=== PATIENT | female | born 1985 | race Caucasian/White ===

== ENCOUNTER 2016-03-28 11:57 | Emergency (ER) | payer OTHER ==
[~2016-03-28] VITALS: Ht 160 cm; Wt 75.0 kg
[~2016-03-28 11:57] MED LIST: ACYC400T2 PO; CEPH-443 PO; FAMO-18 PO; GUAI120S26 PO; IBUP-1542 PO; PRED50 PO
[2016-03-28 12:01] VITALS: Ht 160 cm; Wt 75.0 kg
[2016-03-28 14:19] LABS: URINE BLOOD (Dip) POC 2+ (NEGATIVE)
[2016-03-28] MEDS ORDERED: IBUP-1542 PO (14:39)
[2016-03-28] MEDS ORDERED: MECL12.574 PO (14:39)
--- NOTE | 2016-03-28 14:41 | ERD ---
ER Documentation Chief Complaint Date/Time DATE: 03/28/16 TIME: 14:39 Chief Complaint flu-like symptoms x 5 days HPI This 30-year-old female presents with body aches, chills and sensation of spinning type dizziness for last 3-4 days. She denies cough, sore throat, vomiting, abdominal pain, diarrhea, urinary complaints. She denies neck stiffness or rashes or headache. She denies visual changes. ROS All systems reviewed and are negative except as per history of present illness. Medications Home Meds Active Scripts Meclizine Hcl* (Antivert*) 12.5 Mg Tab, 12.5 MG PO Q6H Y for DIZZINESS, #15 TAB Prov:DEIDRA HARPER MD 03/28/16 Ibuprofen* (Motrin*) 600 Mg Tab, 600 MG PO Q6, #15 TAB Prov:DEIDRA HARPER MD 03/28/16 Ibuprofen* (Motrin*) 600 Mg Tab, 600 MG PO Q6H Y for PAIN AND OR ELEVATED TEMP, #30 TAB Prov:JACY CHI PA-C 02/06/16 Prednisone (Prednisone) 50 Mg Tab, 50 MG PO DAILY, #5 TAB Prov:JACY CHI PA-C 02/06/16 Acyclovir* (Acyclovir*) 400 Mg Tablet, 400 MG PO 5 TIMES DAILY for 5 Days, TAB Prov:JACY CHI PA-C 02/06/16 Famotidine* (Pepcid*) 20 Mg Tablet, 20 MG PO BID for 4 Days, #30 TAB Prov:MARTHA CHEEMA PA-C 12/17/15 Cephalexin* (Keflex*) 500 Mg Capsule, 500 MG PO QID for 7 Days, CAP Prov:MARTHA CHEEMA PA-C 12/17/15 Ibuprofen* (Motrin*) 600 Mg Tab, 600 MG PO Q6, #30 TAB Prov:MARTHA CHEEMA PA-C 09/23/15 Jsbjwrdcsiq-K-Llxiashput Hb* (Guaifenesin* DM Syrup) 120 Ml Syrup, 10 ML PO Q4H Y for COUGH, #120 ML Prov:MARTHA CHEEMA PA-C 09/23/15 Allergies Allergies: Coded Allergies: No Known Allergy (Unverified , 10/13/16) PMhx/Soc Medical and Surgical Hx: pt denies Medical Hx, pt denies Surgical Hx History of Surgery: Yes (c/section x1) Anesthesia Reaction: No Hx Neurological Disorder: No Hx Respiratory Disorders: No Hx Cardiac Disorders: No Hx Psychiatric Problems: No Hx Miscellaneous Medical Probl: Yes (obese) Hx Alcohol Use: No Hx Substance Use: No Hx Tobacco Use: No Smoking Status: Never smoker Physical Exam Vitals Vital Signs Date Time Temp Pulse Resp B/P Pulse Ox O2 Delivery O2 Flow Rate FiO2 03/28/16 12:01 97.9 70 18 105/55 100 Physical Exam Const: [] Alert, [id number]. Head: Atraumatic Eyes: Normal Conjunctiva ENT: Normal External Ears, Nose and Mouth. Neck: Full range of motion..~ No meningismus. Resp: Clear to auscultation bilaterally Cardio: Regular rate and rhythm, no murmurs Abd: Soft, non tender, non distended. Normal bowel sounds Skin: No petechiae or rashes Back: No midline or flank tenderness Ext: No cyanosis, or edema Neur: Awake and alert. Possible mild reproducible vertigo. Normal gait. No appreciable focal neurologic deficits. Cranial nerves II through XII grossly intact. Psych: Normal Mood and Affect Results 24 hrs Laboratory Tests Test 03/28/16 14:19 Bedside Urine Blood 2+ Bedside Urine Glucose (UA) Negative Bedside Urine Ketones (LAB) Negative Bedside Urine Leukocyte Esterase (L Negative Bedside Urine Nitrite (LAB) Negative Bedside Urine Protein (LAB) Negative Bedside Urine pH (LAB) 6.0 Procedures/MDM Patient has UA which is negative for infection, nitrites, glucose. There is 2+ hemoglobin. HCG is negative. Patient presents with vertigo type dizziness of uncertain etiology associated with chills and generalized body aches particularly in the upper back for last 2 days. Signs and symptoms are not consistent with acute abdomen, pneumonia, sepsis, meningitis, UTI. Patient may have a viral illness. She will treated with ibuprofen and Antivert and observation at home. The patient was stable with no new complaints during the ER course. Clinically, there is no current evidence to suggest meningitis, sepsis, acute abdomen, pneumonia, acute coronary syndrome, pulmonary embolism, or any other emergent condition appearing to require further evaluation or hospitalization. The patient should certainly return for any new or worsening symptoms per the aftercare instructions. They should otherwise follow-up with her primary care doctor for reevaluation this week. Departure Diagnosis: Primary Impression: Dizziness Condition: Stable Patient Instructions: Dizziness, Unk Cause Additional Instructions: ORIONA NORMAL. probablamente un virus que dura 2-4 [place]. cheque otro talisha el proximo keo para mas simptomas- vomito, dolor, jay, problemas con respirando , o con dudley doctor primario. DEIDRA HARPER MD Mar 28, 2016 14:41
== END 2016-03-28 15:10 | disposition home or self-care (01) ==
LOC: FTE 11:57
DX: R42 Dizziness and giddiness (principal)
CPT/HCPCS: 81003; Z7502; 99283